=== PATIENT | female | born 1985 | race Caucasian/White ===

== ENCOUNTER 2021-10-30 00:35 | Emergency (ER) | payer SELFPAY ==
[2021-10-30] MEDS ORDERED: Sodium Chloride 0.9% 2.5 ML Syringe FLUSH PRN (01:06)
[2021-10-30] MEDS ORDERED: Sodium Chloride 0.9% 10 ML Syringe FLUSH PRN (01:06)
[2021-10-30 01:25] LABS: CARBON DIOXIDE,CO2 27.3 mmol/L (21.0-32.0); POTASSIUM,K 3.5 mmol/L (3.5-5.1)
== END 2021-10-30 02:51 | disposition home or self-care (01) ==
LOC: MW.ED 00:35
DX: B02.9 Zoster without complications (principal)
CPT/HCPCS: 36415; 71046; 80053; 84484; 85025; 93005; 99284; J3490; 93010

== ENCOUNTER 2021-10-31 19:31 | Emergency (ER) | payer SELFPAY ==
[2021-10-31] MEDS ORDERED: Enoxaparin 100 MG/1 ML Syringe SUBCUT ONE (21:09)
== END 2021-10-31 21:31 | disposition home or self-care (01) ==
LOC: MW.ED 19:31
DX: R60.0 Localized edema (principal); R79.1 Abnormal coagulation profile
CPT/HCPCS: 36415; 73610; 85379; 96372; 99284; J1650; 99283